=== PATIENT | male | born 1990 ===

== ENCOUNTER 2023-04-29 12:04 | Outpatient (REF) | payer MEDICAID, SELFPAY ==
[2023-04-30 04:09] LABS: Syphilis Screen Nonreactive (Nonreactive)
[2023-04-30 04:18] LABS: ~HepC Num1 0.14 S/CO (0.00-0.79); ~Hepatitis C Antibody Nonreactive (Nonreactive)
[2023-04-30 04:25] LABS: HBS Num1 38.65 mIU/mL (0-7.99); HBc Num1 0.08 S/CO (0.00-0.79); HBsAGNum1 0.46 S/CO (0.00-0.99); Hepatitis B Core Antibody Nonreactive (Nonreactive); Hepatitis B Surface Antigen Negative (Negative); ~Hepatitis B Surface Antibody REACTIVE (Nonreactive)
[2023-05-03 12:32] LABS: TSpotTB Invalid (Negative)
== END 2023-04-29 12:05 | disposition home or self-care (01) ==
LOC: HO.HHCL 12:04
PROVIDERS: Visit Provider Emergency Medicine
DX: Z11.1 Encounter for screening for respiratory tuberculosis (principal); F11.20 Opioid dependence, uncomplicated
CPT/HCPCS: 36415; 86481; 86704; 86706; 86780; 86803; 87340